=== PATIENT | male | born 1995 | race American Indian/Alaskan Native ===

== ENCOUNTER 2021-06-14 13:50 | Emergency (ER) | payer MEDICAID ==
[2021-06-14 14:38] VITALS: BP 134/65
[2021-06-14] MEDS ORDERED: LIDOCAINE 2%/EPINEPHRINE 1:200,000 VIAL (20 ML) INFILTRATI ONE (14:57)
[2021-06-14] MEDS ORDERED: TETANUS,DIPH,PERTUSS(ACELL) VACCINE 0.5 ML SYRINGE IM ONE (15:00)
--- NOTE | 2021-06-14 15:39 | Emergency Department Report ---
ED Laceration HPI - HPI Chief Complaint: Wound/Laceration Stated Complaint: (L) WRIST CUT/OPEN Time Seen by Provider: 06/14/21 14:33 Occurred When: Today Location: Upper Extremity Severity: mild Tetanus Status: Not up to Date Laceration Symptoms: Yes Pain, No Foreign Body Sensation, No Numbness, No Weakness Other History: This is a 25-year-old male nontoxic, well nourished in appearance, no acute signs of distress presents to the ED with c/o of left wrist laceration. Patient stated that he punched a glass window yesterday around 12 pm which caused a laceration. Patient denies decreased sensation or range of motion. Patient stated bleeding is under control. Denies any numbness, tingling, fever, chills, nausea, vomiting, chest pain, shortness of breath, headache or stiff neck. Patient denies any allergies to significant past medical history. Patient is that he is not up-to-date with tetanus. Denies self inflicted injury. Denies any SI/HI. ED Review of Systems ROS: Stated complaint: (L) WRIST CUT/OPEN Other details as noted in HPI Comment: All other systems reviewed and negative Constitutional: denies: chills, fever Eyes: denies: eye pain, eye discharge, vision change ENT: denies: ear pain, throat pain Respiratory: denies: cough, shortness of breath, wheezing Cardiovascular: denies: chest pain, palpitations Endocrine: no symptoms reported Gastrointestinal: denies: abdominal pain, nausea, diarrhea Genitourinary: denies: urgency, dysuria Musculoskeletal: denies: back pain, joint swelling, arthralgia Skin: denies: rash, lesions Neurological: denies: headache, weakness, paresthesias Psychiatric: denies: anxiety, depression Hematological/Lymphatic: denies: easy bleeding, easy bruising ED Past Medical Hx - Surgical History Past Surgical History?: Yes Hx Appendectomy: Yes Additional Surgical History: adenoids removed , tonsillectomy x2, ear surgery(tubes) x2 - Social History Smoking Status: Current Some Day Smoker Substance Use Type: Alcohol - Medications Home Medications: Home Medications Medication Instructions Recorded Confirmed Last Taken Type Sulfamethoxazole/Trimethoprim 1 each PO BID #14 tablet 06/14/21 Unknown Rx [Bactrim DS TAB] Laceration Physical Exam - Exam General: Vital signs noted. No distress. Alert and acting appropriately. Wound Length (cm): 2 (Superficial) Laceration Location: Upper Extremity Laceration Exam: Yes Normal Distal CMS, No Foreign Body, No Exposed Tendon, Vessel, or Nerve, No Tendon Injury ED Course Vital Signs 06/14/21 14:36 Temperature 97.9 F Pulse Rate 74 Blood Pressure 134/65 O2 Sat by Pulse 99 Oximetry - Reevaluation(s) Reevaluation #1: 06/14/21 15:37 Patient is speaking in full sentences with no signs of distress noted. ED Medical Decision Making - Radiology Data [facility] [address] [place] [address] XRay Report Signed Patient: PAIGE MORALES MR#: [id number] : 1995 Acct:[id number] Age/Sex: 25 / M ADM Date: 06/14/21 Loc: ED Attending Dr: Ordering Physician: ADIN EASON NP Date of Service: 06/14/21 Procedure(s): XR wrist 3+V LT Accession Number(s): [id number] cc: ADIN EASON NP Fluoro Time In Minutes: Left wrist 3 views INDICATION: Left wrist pain IMPRESSION: Subtle edema along the dorsal aspect of the left wrist. There is subtle laceration along the radial soft tissues of the distal wrist. No fracture or subluxation. No foreign body appreciated. Signer Name: Jono Myles MD Signed: 06/14/2021 4:04 PM Workstation Name: [id number] Transcribed By: BC Dictated By: Jono Myles MD Electronically Authenticated By: Jono Myles MD Signed Date/Time: 06/14/21 1604 DD/ 160 TD/TT: - Medical Decision Making This is a 25-year-old male that presents with laceration. Patient is stable and was examined by me. Laceration closure has not been performed due to injury occurred more than 24 hours. Patient is discharged with Bactrim. The wound has been properly cleaned and sterile dressing applied. Patient educated on proper wound care. Patient was instructed to refer to Follow-up with a primary care doctor in 3-5 days or if symptoms worsen and continue return to emergency room as soon as possible. At time of discharge, the patient does not seem toxic or ill in appearance. No acute signs of distress noted. Patient agrees to discharge treatment plan of care. No further questions noted by the patient. The wound has been Critical care attestation.: If time is entered above; I have spent that time in minutes in the direct care of this critically ill patient, excluding procedure time. ED Disposition Clinical Impression: Laceration of left wrist Qualifiers: Encounter type: initial encounter Qualified Code(s): S61.512A - Laceration without foreign body of left wrist, initial encounter Disposition: TO HOME OR SELFCARE Is pt being admited?: No Does the pt Need Aspirin: No Condition: Stable Instructions: Wound Care, Adult Additional Instructions: Follow-up with a primary care doctor in 3-5 days or if symptoms worsen and continue return to emergency room as soon as possible. Prescriptions: Sulfamethoxazole/Trimethoprim [Bactrim DS TAB] 1 each PO BID #14 tablet Referrals: PRIMARY CAREMD [Primary Care Provider] - 3-5 Days KATIE CHRISTIAN MD [Staff Physician] - 3-5 Days Time of Disposition: 16:28
--- NOTE | 2021-06-14 16:08 | XRay Report ---
Left wrist 3 views INDICATION: Left wrist pain IMPRESSION: Subtle edema along the dorsal aspect of the left wrist. There is subtle laceration along the radial soft tissues of the distal wrist. No fracture or subluxation. No foreign body appreciated. Signer Name: Jono Myles MD Signed: 06/14/2021 4:04 PM Workstation Name: [id number]
== END 2021-06-14 17:10 | disposition home or self-care (01) ==
LOC: ED 13:50
DX: S61.512A Laceration without foreign body of left wrist, initial encounter (principal); F17.200 Nicotine dependence, unspecified, uncomplicated; Z90.49 Acquired absence of other specified parts of digestive tract; Z98.890 Other specified postprocedural states; Z79.899 Other long term (current) drug therapy; W25.XXXA Contact with sharp glass, initial encounter; Y93.89 Activity, other specified; Y92.89 Other specified places as the place of occurrence of the external cause; Y99.8 Other external cause status
CPT/HCPCS: 90471; 90715